=== PATIENT | female | born 1985 | race Caucasian/White ===

== ENCOUNTER 2020-10-20 21:15 | Observation (INO) | payer BC, SELFPAY ==
[2020-10-20] VITALS (26 sets, daily range): BP systolic 118–139; BP diastolic 65–72; PULSE 106–129; TEMP 37.2; O2SAT 97–99; BMI 35.4
[2020-10-20] MEDS: DEXTROSE 5%/LACTATED RINGERS 1,000 ML 999 ML IV CONT (23:04)
[2020-10-20] MEDS: NIFEdipine 30 MG TAB.ER.24 PO (23:34)
[2020-10-21] VITALS (127 sets, daily range): BP systolic 92–120; BP diastolic 55–73; PULSE 102–126; RESP 16–18; TEMP 36.6–36.9; O2SAT 95–100
[2020-10-21] MEDS: LACTATED RINGERS 1,000 ML 75 ML IV CONT (02:06)
[2020-10-21] MEDS: MAGNESIUM SULF 6 GM/WATER150ML 6 GM/150 ML BAG IVPB (02:07)
[2020-10-21] MEDS: MAGNESIUM SULF 20GM/WATER500ML 500 ML 50 MG IV CONT (02:44)
[2020-10-21] MEDS: TERBUTALINE SULFATE 1 MG/ML VIAL 0.25 MG SUB-Q (03:49)
[2020-10-21 04:06] LABS: Add Urine Microscopic? YES; Appearance Urine Clear (Clear); Bacteria Urine Trace /hpf; Bilirubin Urine Negative (Negative); Blood Urine 2+ (Negative); Color Urine Yellow (Yellow); Glucose Urine UA Negative (Negative); Ketones Urine 1+ mg/dL (Negative); Leukocyte Esterase Ur Negative LEU/UL (Negative); Mucus Urine Rare /lpf; Nitrate Urine Negative (Negative); Protein Urine 1+ mg/dL (Negative); Specific Grav Ur 1.019 (1.001-1.035); Squamous Epithelial Cell Urine Rare /hpf (Few); Urobilinogen Urine Negative mg/dL (<2.0); WBC Urine 0-3 /hpf
--- NOTE | 2020-10-21 07:10 | PC.NURSE ---
Plan of care discussed with patient. Patient states understanding of plan of care and denies questions.
[2020-10-21] MEDS: NIFEdipine 30 MG TAB.ER.24 PO (07:14)
--- NOTE | 2020-10-21 07:17 | PC.NURSE ---
Addendum entered by Christ Carlson RN 10/21/20 07:19: [id number]- Original Note: Dr. Dickson updated on maternal and assessments. Rare contractions noted via toco monitor, patient denies feeling contractions. Order to turn magnesium infusion off and give dose of Procardia 30XL now. Monitor patient for 2 hours after magnesium infusion is discontinued.
--- NOTE | 2020-10-21 09:21 | PC.NURSE ---
Discharge instructions reviewed with patient. Patient educated on labor precautions and placenta previa precautions. Patient states understanding of discharge instructions and all precautions. Patient denies questions and agrees to discharge. Patient to follow-up tomorrow with primary OB doctor.
--- NOTE | 2020-10-25 06:12 | PM.OBTRLD ---
OB - Triage/Final Diagnosis Visit Information Reason for evaluation: threatened labor Comments/Additional reasons for admission: I have assessed the risk for this patient, Justine Calvillo, and determined that she would benefit from observation care. Evaluation Laboratory results: Laboratory Tests 10/21/20 03:48 Urine Color Yellow Urine Appearance Clear Urine pH 5.0 Ur Specific [place] 1.019 Urine Protein 1+ H Urine Glucose (UA) Negative Urine Ketones 1+ H Ur Blood (Man) 2+ H Urine Nitrate Negative Urine Bilirubin Negative Urine Urobilinogen Negative Leukocyte Esterase Rfl Negative Urine RBC 6-10 H Urine WBC 0-3 Ur Squamous Epith Cells Rare Urine Bacteria Trace Urine Mucus Rare
== END 2020-10-21 09:26 | disposition home or self-care (01) ==
PROVIDERS: Admitting Provider Obstetrics & Gynecology; Visit Provider Obstetrics & Gynecology
DX: O47.02 False labor before 37 completed weeks of gestation, second trimester (principal); Z3A.25 25 weeks gestation of pregnancy
CPT/HCPCS: 81001; 96361; 96365; 96366; 96372; A9270; G0378; G0379; J3105; J3475; J7120; J7121